=== PATIENT | female | born 1960 | race Two or more races ===

== ENCOUNTER 2020-07-25 17:05 | Inpatient (IN) | payer MEDICAID, OTHER ==
[~2020-07-25] VITALS: Ht 154.9 cm; Wt 74.2 kg
[2020-07-25] MEDS ORDERED: SODIUM CHLORIDE 0.9% 1,000 ML IVB ONE (18:00)
[2020-07-25 19:06] LABS: Basophils # (auto) 0 10 ^3/uL (0-0.2); Eosinophils # (auto) 0 10 ^3/uL (0-0.8); Monocytes # (auto) 0.2 10 ^3/uL (0-1.3)
[2020-07-25 19:08] LABS: Basophils % (auto) 0.5 % (0.0-2.0); Eosinophils % (auto) 0.6 % (0.0-7.0); Hematocrit 42.1 % (36.0-46.0); Hemoglobin 14.8 g/dL (12.2-16.2); Lymphocytes # (auto) 1.3 10 ^3/uL (0.4-5.4); Lymphocytes % (auto) 21.1 % (10.0-50.0); Mean Corpuscular Hemoglobin 33.8 pg (28.0-32.0); Mean Corpuscular Volume 96.4 fL (80.0-100.0); Monocytes % (auto) 3.5 % (0.0-12.0); Neutrophils # (auto) 4.4 10 ^3/uL (1.6-8.6); Neutrophils % (auto) 74.3 % (37.0-80.0); Platelet Count (auto) 212 10^3/uL (140-450); Red Blood Cells 4.37 10^6/uL (4.0-5.20); Red Cell Distribution Width 12.5 % (11.8-14.3)
[2020-07-25 19:19] LABS: Albumin 3.2 g/dL (3.4-5.0); Anion Gap 5 (5-15); Blood Urea Nitrogen 10 mg/dL (7-18); Calcium 9.3 mg/dL (8.5-10.1); Carbon Dioxide 30 mmol/L (21-32); Chloride 104 mmol/L (98-107); Glucose 204 mg/dL (74-106); Sodium 139 mmol/L (136-145)
[2020-07-25 19:24] LABS: Alanine Aminotransferase 16 U/L (13-56); Alkaline Phosphatase 116 U/L (45-117); Aspartate Aminotransferase 9 U/L (15-37); BUN/Creatinine Ratio 26.3; Bilirubin, Total 0.4 mg/dL (0.2-1.0); GFR African American 224 mL/min; GFR Non-African American 186 mL/min; Total Protein 7.1 g/dL (6.4-8.2)
[2020-07-25 20:37] LABS: INR 0.96 (0.9-1.15); Partial Thromboplastin Time 26.9 sec (23.0-31.2)
[2020-07-25 22:42] LABS: Urine Bacteria NONE SEEN /hpf (None Seen); Urine Blood Negative /uL (Negative); Urine Specific Gravity 1.012 (1.001-1.035); Urine WBC 2 /hpf (0 - 5)
[2020-07-25] MEDS ORDERED: ONDANSETRON HCL 4 MG/2 ML VIAL IV PRN (23:30)
[2020-07-25] MEDS ORDERED: DEXTROSE (50%) 50ML SYRG IV PRN (23:30)
[2020-07-25] MEDS ORDERED: NITROGLYCERIN 0.4 MG SL TAB SL PRN (23:30)
[2020-07-25] MEDS ORDERED: MORPHINE SULFATE 4 MG/ML SYR/VIAL IV PRN (23:30)
[2020-07-25] MEDS ORDERED: DOCUSATE SOD 100 MG CAP PO PRN (23:30)
[2020-07-25] MEDS ORDERED: hydrALAZINE HCL 20 MG/ML VL IV PRN (23:30)
[2020-07-25] MEDS ORDERED: ACETAMINOPHEN 325 MG TAB PO PRN (23:30)
[2020-07-25] MEDS ORDERED: MORPHINE SULF INJ 2 MG/ML SYRINGE 1ML IV PRN (23:30)
[2020-07-26 04:34] LABS: Basophils # (auto) 0 10 ^3/uL (0-0.2); Basophils % (auto) 0.5 % (0.0-2.0); Eosinophils # (auto) 0.1 10 ^3/uL (0-0.8); Eosinophils % (auto) 1.2 % (0.0-7.0); Hematocrit 40.1 % (36.0-46.0); Lymphocytes # (auto) 2.6 10 ^3/uL (0.4-5.4); Lymphocytes % (auto) 38.1 % (10.0-50.0); Mean Corpuscular Hemoglobin 33.3 pg (28.0-32.0); Mean Corpuscular Hgb Conc. 34.8 g/dL (32.0-36.0); Mean Corpuscular Volume 95.6 fL (80.0-100.0); Monocytes # (auto) 0.3 10 ^3/uL (0-1.3); Monocytes % (auto) 4.4 % (0.0-12.0); Neutrophils # (auto) 3.8 10 ^3/uL (1.6-8.6); Neutrophils % (auto) 55.8 % (37.0-80.0); Nucleated Red Blood Cells % 0.1 %; Platelet Count (auto) 219 10^3/uL (140-450); Red Cell Distribution Width 12.4 % (11.8-14.3); White Blood Cell 6.8 10^3/uL (4.4-10.8)
[2020-07-26 04:55] LABS: Chloride 106 mmol/L (98-107); Potassium 3.8 mmol/L (3.5-5.1); Sodium 140 mmol/L (136-145)
[2020-07-26 05:11] LABS: Alanine Aminotransferase 15 U/L (13-56); Albumin 2.8 g/dL (3.4-5.0); Alkaline Phosphatase 97 U/L (45-117); Anion Gap 7 (5-15); Aspartate Aminotransferase 11 U/L (15-37); BUN/Creatinine Ratio 27.9; Bilirubin, Total 0.3 mg/dL (0.2-1.0); Blood Urea Nitrogen 12 mg/dL (7-18); Calcium 8.9 mg/dL (8.5-10.1); Carbon Dioxide 27 mmol/L (21-32); Cholesterol 175 mg/dL (< 200); GFR African American 195 mL/min; GFR Non-African American 161 mL/min; Glucose 190 mg/dL (74-106); HDL Cholesterol 58 mg/dL (40-59); LDL Cholesterol 106 mg/dL (< 100); Total Protein 6.6 g/dL (6.4-8.2); Triglycerides 122 mg/dL (< 150)
[2020-07-26] MEDS: SODIUM CHLOR 0.9% PF (SALINE LOCK) 10ML VIAL/SYR IV SCH ×3 (06:03→21:25)
[2020-07-26] MEDS: ACCU-CHEK COMFORT CURVE STRIP VI SCH ×4 (07:22→21:26)
[2020-07-26] MEDS: InsuLIN REG 1unit/0.01ml Soln (100units/ml) SC SCH ×4 (07:23→21:27)
[2020-07-26 08:37] VITALS: BP 139/85
[2020-07-26] MEDS ORDERED: ASPirin 81 mg TAB PO SCH (10:00)
[2020-07-26] MEDS ORDERED: ZINC SULFATE 220mg CAP or TAB PO SCH (10:00)
[2020-07-26] MEDS ORDERED: ASCORBIC ACID 500 MG TAB PO SCH (10:00)
[2020-07-26] MEDS: FAMOTIDINE 20 MG TAB PO SCH ×2 (10:18→21:26)
[2020-07-26] MEDS: MULTIPLE VITAMIN TAB PO SCH (10:19)
[2020-07-26 12:51] VITALS: BP 143/74
[2020-07-26 16:22] VITALS: BP 142/84
[2020-07-26] MEDS ORDERED: LOSARTAN POTASSIUM 50 MG TAB PO ONE (17:45)
[2020-07-26] MEDS ORDERED: LORazepam 2MG/ML-1ML VIAL IV PRN (20:45)
[2020-07-26] MEDS: ATORVASTATIN 20 MG TAB PO SCH (21:25)
[2020-07-26] MEDS: PREGABALIN 25 MG CAP PO SCH (21:26)
[2020-07-26] MEDS: HYDROcodone-ACET 5/325MG TAB PO PRN (21:52)
[2020-07-26 22:00] VITALS: BP 132/70
[2020-07-26] MEDS ORDERED: ATORVASTATIN 20 MG TAB PO SCH (22:00)
[2020-07-27 05:00] VITALS: BP 133/74
[2020-07-27] MEDS: SODIUM CHLOR 0.9% PF (SALINE LOCK) 10ML VIAL/SYR IV SCH ×3 (06:33→22:04)
[2020-07-27] MEDS: ACCU-CHEK COMFORT CURVE STRIP VI SCH ×4 (06:33→22:07)
[2020-07-27] MEDS: InsuLIN REG 1unit/0.01ml Soln (100units/ml) SC SCH ×4 (06:34→22:16)
[2020-07-27 08:49] LABS: Ferritin 186.7 ng/mL (10-322)
[2020-07-27 09:11] VITALS: BP 121/68
[2020-07-27] MEDS ORDERED: METF-370 PO (10:09)
[2020-07-27] MEDS ORDERED: LISI-646 PO (10:11)
[2020-07-27] MEDS ORDERED: ATOR40TA52 PO (10:38)
[2020-07-27] MEDS ORDERED: LISI-648 PO (10:38)
[2020-07-27] MEDS ORDERED: GABA300C10 PO (10:38)
[2020-07-27] MEDS ORDERED: INSU1INJ19 SC (10:38)
[2020-07-27] MEDS ORDERED: DULO20CA PO (10:38)
[2020-07-27] MEDS ORDERED: INSU100I26 SC (10:39)
[2020-07-27] MEDS: PREGABALIN 25 MG CAP PO SCH ×2 (10:43→22:04)
[2020-07-27] MEDS: FAMOTIDINE 20 MG TAB PO SCH ×2 (10:44→22:03)
[2020-07-27] MEDS: ASPirin 81 mg TAB PO SCH (10:44)
[2020-07-27] MEDS: MULTIPLE VITAMIN TAB PO SCH (10:44)
[2020-07-27] MEDS: LOSARTAN POTASSIUM 50 MG TAB PO SCH (10:50)
[2020-07-27 13:04] VITALS: BP 133/75
[2020-07-27 16:28] VITALS: BP 125/65
[2020-07-27 22:00] VITALS: BP 117/70
[2020-07-27] MEDS: HYDROcodone-ACET 5/325MG TAB PO PRN (22:04)
[2020-07-27] MEDS: ATORVASTATIN 20 MG TAB PO SCH (22:04)
[2020-07-28 05:00] VITALS: BP 151/89
[2020-07-28] MEDS: ACCU-CHEK COMFORT CURVE STRIP VI SCH ×2 (06:17→11:30)
[2020-07-28] MEDS: SODIUM CHLOR 0.9% PF (SALINE LOCK) 10ML VIAL/SYR IV SCH ×2 (06:17→14:00)
[2020-07-28] MEDS: InsuLIN REG 1unit/0.01ml Soln (100units/ml) SC SCH ×2 (06:26→12:39)
[2020-07-28 09:00] VITALS: BP 121/68
[2020-07-28] MEDS: ASPirin 81 mg TAB PO SCH (09:34)
[2020-07-28] MEDS: PREGABALIN 25 MG CAP PO SCH (09:34)
[2020-07-28] MEDS: FAMOTIDINE 20 MG TAB PO SCH (09:35)
[2020-07-28] MEDS: MULTIPLE VITAMIN TAB PO SCH (09:35)
[2020-07-28] MEDS: LOSARTAN POTASSIUM 50 MG TAB PO SCH (09:36)
[2020-07-28 11:20] LABS: Folate (Folic Acid) 6.83 ng/mL (5.38-24)
[2020-07-28 13:00] VITALS: BP 121/65
[2020-07-28] MEDS ORDERED: CYANOCOBALAMIN (B-12) 1000 MCG/1 ML VIAL SUBCUT ONE (15:00)
[2020-07-28] MEDS ORDERED: ASPI1CHW15 PO (15:02)
[2020-07-28 16:30] VITALS: BP 126/62
== END 2020-07-28 17:00 | disposition home or self-care (01) | DRG 111 ==
LOC: ER 17:05 → TELE 23:32 → TELE-CENTR 07-26 06:35
PROVIDERS: ADMIT Nurse Practitioner Family; ATTEND Internal Medicine
DX: R42 Dizziness and giddiness (principal); E44.0 Moderate protein-calorie malnutrition; E11.40 Type 2 diabetes mellitus with diabetic neuropathy, unspecified; G25.81 Restless legs syndrome; Z20.822 Contact with and (suspected) exposure to COVID-19; E53.8 Deficiency of other specified B group vitamins; Z68.30 Body mass index [BMI] 30.0-30.9, adult; E78.5 Hyperlipidemia, unspecified; F17.200 Nicotine dependence, unspecified, uncomplicated; G47.00 Insomnia, unspecified; I10 Essential (primary) hypertension; I25.10 Atherosclerotic heart disease of native coronary artery without angina pectoris; Z79.4 Long term (current) use of insulin; G89.29 Other chronic pain; Z79.82 Long term (current) use of aspirin; Z79.899 Other long term (current) drug therapy; Z80.3 Family history of malignant neoplasm of breast; Z82.49 Family history of ischemic heart disease and other diseases of the circulatory system; Z83.3 Family history of diabetes mellitus; Z86.73 Personal history of transient ischemic attack (TIA), and cerebral infarction without residual deficits
CPT/HCPCS: 36415; 70450; 70551; 71045; 80053; 80061; 81001; 82607; 82728; 82746; 82962; 83036; 83540; 83550; 83735; 84155; 84165; 84443; 84484; 85025; 85610; 85730; 87426; 93005; 93306; 93886; 96360; 96361; G0378; J1815; J2405

== ENCOUNTER 2020-09-23 16:11 | Emergency (ER) | payer MEDICARE, MEDICAID ==
[~2020-09-23] VITALS: Ht 157.5 cm; Wt 77.1 kg
[~2020-09-23 16:11] MED LIST: ASPI1CHW15 PO; ATOR40TA52 PO; DULO20CA PO; INSU100I26 SC; INSU1INJ19 SC; LISI-716 PO; METF-370 PO
[2020-09-23 19:20] VITALS: BP 137/84
== END 2020-09-23 20:19 | disposition home or self-care (01) ==
LOC: ER 16:14
DX: H43.392 Other vitreous opacities, left eye (principal); E11.9 Type 2 diabetes mellitus without complications; I10 Essential (primary) hypertension; Z79.82 Long term (current) use of aspirin; Z79.899 Other long term (current) drug therapy

== ENCOUNTER 2021-04-21 15:07 | Emergency (ER) | payer MEDICARE, MEDICAID ==
[~2021-04-21] VITALS: Ht 154.9 cm; Wt 79.4 kg
[2021-04-21 15:32] VITALS: BP 165/84
[2021-04-21 20:44] LABS: Hematocrit 45.6 % (36.0-46.0); Hemoglobin 15.7 g/dL (12.2-16.2); Mean Corpuscular Hemoglobin 32.8 pg (28.0-32.0); Mean Corpuscular Hgb Conc. 34.4 g/dL (32.0-36.0); Mean Corpuscular Volume 95.4 fL (80.0-100.0); Red Blood Cells 4.78 10^6/uL (4.0-5.20); Red Cell Distribution Width 12.6 % (11.8-14.3); White Blood Cell 4.7 10^3/uL (4.4-10.8)
[2021-04-21 21:02] LABS: Albumin 3.4 g/dL (3.4-5.0); Potassium 4.8 mmol/L (3.5-5.1)
[2021-04-21 21:07] LABS: BUN/Creatinine Ratio 20.2; Bilirubin, Total 0.4 mg/dL (0.2-1.0); Total Protein 8.2 g/dL (6.4-8.2)
[2021-04-21 21:17] LABS: Band Neutrophils % (manual) 0; Basophils % (manual) 0 (0.0-2.0); Blast Cells 0; Eosinophils % (manual) 0 (0-7); Metamyelocytes % 0; Myelocytes % 0; Promyelocytes % 0; Reactive Lymphocytes 0
[2021-04-21 21:25] LABS: Lymphocytes % (manual) 37 (10.0-50.0); Monocytes % (manual) 3 (0-12)
== END 2021-04-22 03:33 | disposition home or self-care (01) ==
LOC: ER 15:07
DX: E11.65 Type 2 diabetes mellitus with hyperglycemia (principal); E11.40 Type 2 diabetes mellitus with diabetic neuropathy, unspecified; R20.0 Anesthesia of skin; I10 Essential (primary) hypertension; M19.90 Unspecified osteoarthritis, unspecified site; Z86.73 Personal history of transient ischemic attack (TIA), and cerebral infarction without residual deficits
CPT/HCPCS: 36415; 71045; 80053; 83880; 84484; 85007; 85027; 93005

== ENCOUNTER 2021-11-23 13:03 | Inpatient (IN) | payer MEDICAID, MEDICARE ==
[~2021-11-23] VITALS: Ht 157.5 cm; Wt 68.5 kg
[2021-11-23] MEDS ORDERED: SODIUM CHLORIDE 0.9% 1,000 ML IVB ONE (13:45)
[2021-11-23 14:12] LABS: Basophils # (auto) 0 10 ^3/uL (0-0.2); Basophils % (auto) 0.3 % (0.0-2.0); Eosinophils # (auto) 0 10 ^3/uL (0-0.8); Hematocrit 45.7 % (36.0-46.0); Hemoglobin 15.1 g/dL (12.2-16.2); Lymphocytes # (auto) 0.5 10 ^3/uL (0.4-5.4); Lymphocytes % (auto) 6.7 % (10.0-50.0); Mean Corpuscular Hemoglobin 31.9 pg (28.0-32.0); Mean Corpuscular Hgb Conc. 32.9 g/dL (32.0-36.0); Mean Corpuscular Volume 96.9 fL (80.0-100.0); Monocytes # (auto) 0.3 10 ^3/uL (0-1.3); Monocytes % (auto) 3.6 % (0.0-12.0); Neutrophils # (auto) 6.5 10 ^3/uL (1.6-8.6); Neutrophils % (auto) 89.4 % (37.0-80.0); Red Blood Cells 4.72 10^6/uL (4.0-5.20); Red Cell Distribution Width 12.9 % (11.8-14.3); White Blood Cell 7.3 10^3/uL (4.4-10.8)
[2021-11-23 14:48] LABS: Albumin 3.2 g/dL (3.4-5.0); Calcium 9.2 mg/dL (8.5-10.1); Magnesium 1.7 mg/dL (1.6-2.6)
[2021-11-23 14:52] LABS: BUN/Creatinine Ratio 20.9; Bilirubin, Total 0.6 mg/dL (0.2-1.0); Total Protein 6.7 g/dL (6.4-8.2)
[2021-11-23 15:04] LABS: Lactic Acid w/Reflex 2.4 mmol/L (0.4-2.0)
[2021-11-23] MEDS ORDERED: SODIUM CHLORIDE 0.9% 1,000 ML IV ONE (15:30)
[2021-11-23 19:03] LABS: Urine Bacteria MANY /hpf (None Seen); Urine Blood Negative /uL (Negative); Urine Mucus FEW (None Seen); Urine Specific Gravity 1.029 (1.001-1.035); Urine WBC 2 /hpf (0 - 5)
[2021-11-23] MEDS ORDERED: LOPERAMIDE HCL 2 MG CAP/TAB PO PRN (20:45)
[2021-11-23] MEDS ORDERED: DEXTROSE (50%) 50ML SYRG IV PRN (20:45)
[2021-11-23] MEDS ORDERED: cefTRIAXone 1GM/50ML D5W 50 ML IV ONE (20:45)
[2021-11-23] MEDS ORDERED: TEMAZEPAM 15 MG CAP PO PRN (20:45)
[2021-11-23] MEDS ORDERED: ACETAMINOPHEN 325 MG TAB PO PRN (20:45)
[2021-11-23] MEDS ORDERED: HYDROcodone-ACET 5/325MG TAB PO PRN (20:45)
[2021-11-23] MEDS ORDERED: ONDANSETRON HCL 4 MG/2 ML VIAL IV PRN (20:45)
[2021-11-23] MEDS: SODIUM CHLORIDE 0.9% 1,000 ML IV SCH (21:46)
[2021-11-23] MEDS ORDERED: LISINOPRIL 20 MG TAB PO SCH (22:00)
[2021-11-23] MEDS: ATORVASTATIN 20 MG TAB PO SCH (22:20)
[2021-11-23] MEDS: InsuLIN REG 1unit/0.01ml Soln (100units/ml) SC SCH (23:22)
[2021-11-24] MEDS: ACCU-CHEK COMFORT CURVE STRIP VI SCH ×4 (02:25→19:19)
[2021-11-24 05:00] VITALS: BP 106/58
[2021-11-24] MEDS: InsuLIN REG 1unit/0.01ml Soln (100units/ml) SC SCH ×3 (05:49→17:50)
[2021-11-24 06:32] LABS: Basophils # (auto) 0 10 ^3/uL (0-0.2); Basophils % (auto) 0.6 % (0.0-2.0); Eosinophils # (auto) 0 10 ^3/uL (0-0.8); Eosinophils % (auto) 0.2 % (0.0-7.0); Hemoglobin 13.6 g/dL (12.2-16.2); Lymphocytes # (auto) 1.5 10 ^3/uL (0.4-5.4); Lymphocytes % (auto) 31.7 % (10.0-50.0); Mean Corpuscular Hgb Conc. 33.2 g/dL (32.0-36.0); Mean Corpuscular Volume 96.6 fL (80.0-100.0); Monocytes # (auto) 0.3 10 ^3/uL (0-1.3); Monocytes % (auto) 6.1 % (0.0-12.0); Neutrophils # (auto) 2.8 10 ^3/uL (1.6-8.6); Neutrophils % (auto) 61.4 % (37.0-80.0); Nucleated Red Blood Cells % 0.1 %; Red Blood Cells 4.25 10^6/uL (4.0-5.20); White Blood Cell 4.6 10^3/uL (4.4-10.8)
[2021-11-24 06:47] LABS: Albumin 2.5 g/dL (3.4-5.0); Calcium 8.3 mg/dL (8.5-10.1); Potassium 3.5 mmol/L (3.5-5.1)
[2021-11-24 06:51] LABS: Bilirubin, Total 0.3 mg/dL (0.2-1.0); Total Protein 5.8 g/dL (6.4-8.2)
[2021-11-24] MEDS: cefTRIAXone 1GM/50ML D5W 50 ML IV SCH (08:20)
[2021-11-24] MEDS: PANTOPRAZOLE 40 MG TAB PO SCH (08:20)
[2021-11-24 09:00] VITALS: BP 119/63
[2021-11-24 13:00] VITALS: BP 143/73
[2021-11-24] MEDS: SODIUM CHLORIDE 0.9% 1,000 ML IV SCH ×2 (13:07→23:25)
[2021-11-24 17:00] VITALS: BP 138/75
[2021-11-24 22:00] VITALS: BP 173/94
[2021-11-24] MEDS ORDERED: INSULIN LANTUS (GLARGINE) 1 /0.01ml (100units/ml) SC SCH (22:00)
[2021-11-24] MEDS: ATORVASTATIN 20 MG TAB PO SCH (22:15)
[2021-11-24] MEDS ORDERED: LABETALOL HCL 5 MG/ML 4ML SYRINGE IV ONE (22:45)
[2021-11-25] MEDS: ACCU-CHEK COMFORT CURVE STRIP VI SCH ×2 (00:22→05:52)
[2021-11-25] MEDS: InsuLIN REG 1unit/0.01ml Soln (100units/ml) SC SCH ×2 (00:24→05:53)
[2021-11-25 05:00] VITALS: BP 150/64
[2021-11-25 09:00] VITALS: BP 118/61
[2021-11-25] MEDS ORDERED: CEFU500T43 PO (09:43)
[2021-11-25] MEDS: cefTRIAXone 1GM/50ML D5W 50 ML IV SCH (09:48)
[2021-11-25] MEDS: PANTOPRAZOLE 40 MG TAB PO SCH (09:48)
[2021-11-25] MEDS ORDERED: LISINOPRIL 10 MG TAB PO SCH (10:00)
[2021-11-25 11:11] VITALS: BP 118/61
== END 2021-11-25 11:53 | disposition home or self-care (01) | DRG 392 ==
LOC: ER 13:03 → OVERFLOW 20:41 → CENTRAL 23:20
PROVIDERS: ADMIT Nurse Practitioner; ATTEND Internal Medicine
DX: K52.9 Noninfective gastroenteritis and colitis, unspecified (principal); N39.0 Urinary tract infection, site not specified; E86.0 Dehydration; I10 Essential (primary) hypertension; M19.90 Unspecified osteoarthritis, unspecified site; E11.9 Type 2 diabetes mellitus without complications; Z86.73 Personal history of transient ischemic attack (TIA), and cerebral infarction without residual deficits; Z80.3 Family history of malignant neoplasm of breast; Z82.49 Family history of ischemic heart disease and other diseases of the circulatory system; Z83.3 Family history of diabetes mellitus; Z79.84 Long term (current) use of oral hypoglycemic drugs
CPT/HCPCS: 36415; 74176; 80053; 81001; 82150; 82607; 82962; 83036; 83605; 83690; 83735; 84443; 84484; 85025; 87086; 93005; 96361; 96365; G0378; J0696; J1815; J3490

== ENCOUNTER 2023-01-15 01:43 | Emergency (ER) | payer BC, MEDICARE ==
[~2023-01-15] VITALS: Ht 157.5 cm; Wt 78.4 kg
[~2023-01-15 01:43] MED LIST changes: +ASPI-736 PO; -ASPI1CHW15 PO; +CEFU500T43 PO; -LISI-716 PO; +LISI10TA34 PO
[2023-01-15] MEDS ORDERED: ACET-1080 PO ×3 (07:10→15:10)
[2023-01-15] MEDS ORDERED: CEPH500C PO ×3 (07:10→15:10)
[2023-01-15 07:29] VITALS: BP 147/96; PULSE 95; RESP 16; TEMP 98; O2SAT 98
== END 2023-01-15 07:18 | disposition home or self-care (01) ==
LOC: ER 01:43
DX: S80.922A Unspecified superficial injury of left lower leg, initial encounter (principal); E11.9 Type 2 diabetes mellitus without complications; I10 Essential (primary) hypertension; Z79.899 Other long term (current) drug therapy; Z79.84 Long term (current) use of oral hypoglycemic drugs; Z86.73 Personal history of transient ischemic attack (TIA), and cerebral infarction without residual deficits; Z98.890 Other specified postprocedural states; X58.XXXA Exposure to other specified factors, initial encounter; Y93.89 Activity, other specified; Y92.89 Other specified places as the place of occurrence of the external cause; Y99.8 Other external cause status

== ENCOUNTER 2023-04-04 20:15 | Inpatient (IN) | payer OTHER, MEDICAID ==
[~2023-04-04] VITALS: Ht 157.5 cm; Wt 81.4 kg
[~2023-04-04 20:15] MED LIST changes: +ACET-1080 PO; +CEPH500C PO
[2023-04-04] MEDS ORDERED: InsuLIN REG 1unit/0.01ml Soln (100units/ml) SC ONE (21:30)
[2023-04-04 21:39] LABS: Basophils # (auto) 0 10 ^3/uL (0-0.2); Basophils % (auto) 0.6 % (0.0-2.0); Eosinophils # (auto) 0.1 10 ^3/uL (0-0.8); Hematocrit 44.7 % (36.0-46.0); Hemoglobin 14.9 g/dL (12.2-16.2); Lymphocytes % (auto) 29.4 % (10.0-50.0); Mean Corpuscular Hemoglobin 32.2 pg (28.0-32.0); Mean Corpuscular Hgb Conc. 33.3 g/dL (32.0-36.0); Mean Corpuscular Volume 96.8 fL (80.0-100.0); Monocytes # (auto) 0.3 10 ^3/uL (0-1.3); Monocytes % (auto) 5.1 % (0.0-12.0); Neutrophils # (auto) 4.3 10 ^3/uL (1.6-8.6); Neutrophils % (auto) 63.9 % (37.0-80.0); Nucleated Red Blood Cells % 0.3 %; Red Blood Cells 4.61 10^6/uL (4.0-5.20); Red Cell Distribution Width 13.3 % (11.8-14.3); White Blood Cell 6.7 10^3/uL (4.4-10.8)
[2023-04-04 21:41] LABS: Alanine Aminotransferase 22 U/L (7-40); Albumin 4.3 g/dL (3.2-4.8); Alkaline Phosphatase 177 U/L (46-116); Anion Gap 7 (5-15); Aspartate Aminotransferase 13 U/L (13-40); BUN/Creatinine Ratio 20.3 (10.0-20.0); Bilirubin, Total 0.3 mg/dL (0.2-1.0); Blood Urea Nitrogen 26 mg/dL (9-23); Calcium 9.6 mg/dL (8.7-10.4); Carbon Dioxide 30 mmol/L (20-30); Chloride 96 mmol/L (98-107); Potassium 4.5 mmol/L (3.5-5.1); Sodium 133 mmol/L (136-145); Total Protein 7.2 g/dL (5.7-8.2)
[2023-04-04 21:55] LABS: Glucose 501 mg/dL (74-106)
[2023-04-04] MEDS ORDERED: VANCOMYCIN PER PHARMACY 0 MG IV SCH (23:45)
[2023-04-04] MEDS ORDERED: hydrALAZINE HCL 10 MG TAB PO PRN (23:45)
[2023-04-04] MEDS: INSULIN LANTUS (GLARGINE) 1 /0.01ml (100units/ml) SC SCH (23:45)
[2023-04-04] MEDS ORDERED: DEXTROSE (50%) 50ML SYRG IV PRN (23:45)
[2023-04-04] MEDS ORDERED: HYDROcodone-ACET 5/325MG TAB PO PRN (23:45)
[2023-04-05] MEDS ORDERED: VANCOMYCIN 1GM/200ML 250 ML IV SCH
[2023-04-05 00:30] LABS: Chloride 98 mmol/L (98-107); Potassium 4.8 mmol/L (3.5-5.1); Sodium 133 mmol/L (136-145)
[2023-04-05 00:31] LABS: Anion Gap 5 (5-15); Carbon Dioxide 30 mmol/L (20-30)
[2023-04-05 00:32] LABS: Calcium 9.8 mg/dL (8.7-10.4)
[2023-04-05 00:36] LABS: BUN/Creatinine Ratio 16.8 (10.0-20.0); Blood Urea Nitrogen 23 mg/dL (9-23)
[2023-04-05 00:42] LABS: Glucose 465 mg/dL (74-106); Lactic Acid w/Reflex 3.2 mmol/L (0.4-2.0)
[2023-04-05] MEDS: ENOXAPARIN SOD 40 MG/0.4 ML SYRINGE SC SCH ×2 (01:06→10:47)
[2023-04-05 02:15] VITALS: PULSE 91; RESP 16; O2SAT 99
[2023-04-05] MEDS: ACETAMINOPHEN 325 MG TAB PO PRN (05:57)
[2023-04-05] MEDS: ACCU-CHEK COMFORT CURVE STRIP VI SCH ×4 (06:42→22:00)
[2023-04-05] MEDS: InsuLIN REG 1unit/0.01ml Soln (100units/ml) SC SCH ×3 (06:56→20:06)
[2023-04-05] MEDS ORDERED: PATIENTS OWN MEDICATION (Aspirin (Aspirin Low Strength) 81 MG) PO SCH (10:00)
[2023-04-05] MEDS ORDERED: PATIENTS OWN MEDICATION (Duloxetine Hcl (Cymbalta) 30 MG) PO SCH (10:00)
[2023-04-05] MEDS: DULoxetine HCL 30 MG CAP PO SCH (10:46)
[2023-04-05] MEDS: ASPirin 81 mg TAB PO SCH (10:46)
[2023-04-05] MEDS: LISINOPRIL 10 MG TAB PO SCH (10:51)
[2023-04-05] MEDS: cefTRIAXone 1GM/50ML D5W 50 ML IV SCH (20:06)
[2023-04-05] MEDS ORDERED: ATORVASTATIN 20 MG TAB PO SCH (22:00)
[2023-04-05] MEDS: INSULIN LANTUS (GLARGINE) 1 /0.01ml (100units/ml) SC SCH (22:00)
[2023-04-05] MEDS ORDERED: InsuLIN REG 1unit/0.01ml Soln (100units/ml) SC SCH (22:00)
[2023-04-05 23:25] VITALS: BP_SYST 113; BP_SYST 128; BP_SYST 129; BP_DIAS 66; BP_DIAS 72; BP_DIAS 89; PULSE 96; RESP 16; TEMP 97.3; TEMP 97.6; O2SAT 99
[2023-04-06] MEDS ORDERED: VANCOMYCIN 1GM/200ML 200 ML IV SCH (01:00)
[2023-04-06] MEDS: DULoxetine HCL 30 MG CAP PO SCH ×2 (01:32→09:26)
[2023-04-06] MEDS: LISINOPRIL 10 MG TAB PO SCH ×2 (01:33→09:27)
[2023-04-06] MEDS: ACETAMINOPHEN 325 MG TAB PO PRN (01:33)
[2023-04-06] MEDS: ACCU-CHEK COMFORT CURVE STRIP VI SCH ×2 (05:43→12:34)
[2023-04-06 06:14] LABS: Chloride 100 mmol/L (98-107); Potassium 4.1 mmol/L (3.5-5.1); Sodium 134 mmol/L (136-145)
[2023-04-06 06:15] LABS: Anion Gap 8 (5-15); Calcium 9.6 mg/dL (8.5-10.1); Carbon Dioxide 26 mmol/L (20-30)
[2023-04-06 06:20] LABS: BUN/Creatinine Ratio 20.8 (10.0-20.0); Blood Urea Nitrogen 22 mg/dL (9-23); Glucose 284 mg/dL (74-106)
[2023-04-06] MEDS: InsuLIN REG 1unit/0.01ml Soln (100units/ml) SC SCH ×2 (06:40→12:36)
[2023-04-06 09:00] VITALS: BP 131/56; PULSE 112; RESP 18; TEMP 97.9; O2SAT 94
[2023-04-06] MEDS: ASPirin 81 mg TAB PO SCH (09:26)
[2023-04-06] MEDS: cefTRIAXone 1GM/50ML D5W 50 ML IV SCH (09:28)
[2023-04-06] MEDS: ENOXAPARIN SOD 40 MG/0.4 ML SYRINGE SC SCH (09:28)
[2023-04-06 13:00] VITALS: BP 135/67; PULSE 88; RESP 20; TEMP 98.4; O2SAT 97
[2023-04-06 15:31] VITALS: BP 135/67; PULSE 88; RESP 20; TEMP 98.4; O2SAT 97
== END 2023-04-06 17:08 | disposition home or self-care (01) | DRG 638 ==
LOC: ER 20:15 → OVERFLOW 23:43 → WEST WING 04-05 21:29
PROVIDERS: ADMIT Nurse Practitioner Family; ATTEND Nurse Practitioner Family
DX: E11.622 Type 2 diabetes mellitus with other skin ulcer (principal); L03.116 Cellulitis of left lower limb; L97.929 Non-pressure chronic ulcer of unspecified part of left lower leg with unspecified severity; N17.0 Acute kidney failure with tubular necrosis; E11.65 Type 2 diabetes mellitus with hyperglycemia; I10 Essential (primary) hypertension; E11.42 Type 2 diabetes mellitus with diabetic polyneuropathy; Z79.4 Long term (current) use of insulin; Z79.84 Long term (current) use of oral hypoglycemic drugs; Z86.73 Personal history of transient ischemic attack (TIA), and cerebral infarction without residual deficits; Z83.3 Family history of diabetes mellitus; Z82.49 Family history of ischemic heart disease and other diseases of the circulatory system; Z80.3 Family history of malignant neoplasm of breast
CPT/HCPCS: 36415; 73700; 80048; 80053; 82010; 82962; 83036; 83605; 85025; 87040; 93970; 96372; G0378; J1815

== ENCOUNTER 2023-06-20 01:48 | Emergency (ER) | payer OTHER ==
[~2023-06-20] VITALS: Ht 157.5 cm; Wt 75.0 kg
[~2023-06-20 01:48] MED LIST changes: -CEFU500T43 PO; -CEPH500C PO
[2023-06-20] MEDS: KETOROLAC TROMETH 30 MG/ML 1ML VIAL IM ONE (04:59)
[2023-06-20 06:40] LABS: Alanine Aminotransferase 13 U/L (7-40); Albumin 3.9 g/dL (3.2-4.8); Alkaline Phosphatase 117 U/L (46-116); Anion Gap 7 (5-15); Aspartate Aminotransferase 13 U/L (13-40); BUN/Creatinine Ratio 23.9 (10.0-20.0); Blood Urea Nitrogen 22 mg/dL (9-23); Calcium 9.5 mg/dL (8.5-10.1); Carbon Dioxide 25 mmol/L (20-30); Chloride 100 mmol/L (98-107); Glucose 273 mg/dL (74-106); Potassium 4.1 mmol/L (3.5-5.1); Sodium 132 mmol/L (136-145)
[2023-06-20 06:41] LABS: Bilirubin, Total 0.3 mg/dL (0.2-1.0); Total Protein 6.9 g/dL (5.7-8.2)
[2023-06-20 06:49] LABS: CRP High Sensitivity 3.79 mg/dL (<1.0)
[2023-06-20] MEDS: PIPERACILLIN-TAZOB 3.375GM 100 ML IV ONE (06:53)
[2023-06-20 07:18] LABS: Basophils # (auto) 0 10 ^3/uL (0-0.2); Basophils % (auto) 0.5 % (0.0-2.0); Eosinophils # (auto) 0.1 10 ^3/uL (0-0.8); Eosinophils % (auto) 1.1 % (0.0-7.0); Lymphocytes # (auto) 2.1 10 ^3/uL (0.4-5.4); Lymphocytes % (auto) 27.2 % (10.0-50.0); Mean Corpuscular Hemoglobin 32.2 pg (28.0-32.0); Mean Corpuscular Hgb Conc. 33.5 g/dL (32.0-36.0); Mean Corpuscular Volume 96.1 fL (80.0-100.0); Monocytes # (auto) 0.5 10 ^3/uL (0-1.3); Monocytes % (auto) 6.3 % (0.0-12.0); Neutrophils % (auto) 64.9 % (37.0-80.0); Nucleated Red Blood Cells % 0.1 %; Red Blood Cells 4.05 10^6/uL (4.0-5.20); Red Cell Distribution Width 13.2 % (11.8-14.3); White Blood Cell 7.7 10^3/uL (4.4-10.8)
[2023-06-20 07:42] VITALS: TEMP 98.1
[2023-06-20 07:51] VITALS: O2SAT 98
[2023-06-20 08:14] LABS: Erythrocyte Sedimentation Rate 59 mm/hr (0-20)
[2023-06-20 10:00] VITALS: BP 137/68; PULSE 84; RESP 18; O2SAT 97
[2023-06-20] MEDS: traMADol HCL 50 MG TAB PO ONE (10:25)
[2023-06-20] MEDS: VANCOMYCIN 1GM/200ML 200 ML IV ONE (10:36)
[2023-06-20] MEDS ORDERED: DOXY1CAP57 PO (11:15)
== END 2023-06-20 12:11 | disposition home or self-care (01) ==
LOC: ER 01:48
DX: E11.622 Type 2 diabetes mellitus with other skin ulcer (principal); L97.929 Non-pressure chronic ulcer of unspecified part of left lower leg with unspecified severity; I10 Essential (primary) hypertension; Z86.73 Personal history of transient ischemic attack (TIA), and cerebral infarction without residual deficits; Z79.4 Long term (current) use of insulin; Z79.82 Long term (current) use of aspirin; Z79.899 Other long term (current) drug therapy
CPT/HCPCS: 36415; 80053; 83605; 85652; 86141; 96365; 96366; 96367; 96372; 99285; J1885; J2543; J3370

== ENCOUNTER 2023-07-30 19:28 | Emergency (ER) | payer OTHER ==
[~2023-07-30] VITALS: Ht 152.4 cm; Wt 88.0 kg
[~2023-07-30 19:28] MED LIST changes: +DOXY1CAP57 PO
[2023-07-30 19:35] VITALS: BP 143/81; PULSE 95; RESP 16; O2SAT 98
[2023-07-30] MEDS ORDERED: IOHEXOL 350 MG/ML 100ML IJ ONE (20:11)
[2023-07-30 20:16] LABS: Basophils # (auto) 0 10 ^3/uL (0-0.2); Basophils % (auto) 0.5 % (0.0-2.0); Eosinophils # (auto) 0.1 10 ^3/uL (0-0.8); Eosinophils % (auto) 1.2 % (0.0-7.0); Hematocrit 40.9 % (36.0-46.0); Hemoglobin 13.8 g/dL (12.2-16.2); Lymphocytes # (auto) 2.3 10 ^3/uL (0.4-5.4); Lymphocytes % (auto) 31.2 % (10.0-50.0); Mean Corpuscular Hemoglobin 32.4 pg (28.0-32.0); Mean Corpuscular Hgb Conc. 33.8 g/dL (32.0-36.0); Monocytes # (auto) 0.5 10 ^3/uL (0-1.3); Monocytes % (auto) 6.1 % (0.0-12.0); Neutrophils # (auto) 4.6 10 ^3/uL (1.6-8.6); Nucleated Red Blood Cells % 0.1 %; Red Blood Cells 4.26 10^6/uL (4.0-5.20); Red Cell Distribution Width 13.1 % (11.8-14.3); White Blood Cell 7.5 10^3/uL (4.4-10.8)
[2023-07-30 20:31] LABS: INR 1.02 (0.9-1.15); Partial Thromboplastin Time 34.1 SEC (24.5-34.5); Prothrombin Time 10.7 sec (9.3-11.8)
[2023-07-30 20:32] LABS: Alanine Aminotransferase 18 U/L (7-40); Albumin 4.2 g/dL (3.2-4.8); Alkaline Phosphatase 132 U/L (46-116); Anion Gap 8 (5-15); Aspartate Aminotransferase 17 U/L (13-40); BUN/Creatinine Ratio 17.5 (10.0-20.0); Blood Alcohol < 3.0 mg/dL (<10); Blood Urea Nitrogen 14 mg/dL (9-23); Calcium 9.7 mg/dL (8.5-10.1); Carbon Dioxide 26 mmol/L (20-30); Chloride 103 mmol/L (98-107); Glucose 173 mg/dL (74-106); Sodium 137 mmol/L (136-145)
[2023-07-30 20:33] LABS: Bilirubin, Total 0.3 mg/dL (0.2-1.0); Total Protein 7.2 g/dL (5.7-8.2)
== END 2023-07-30 20:38 | disposition left against medical advice (07) ==
LOC: ER 19:28 → EDBD 19:28 → ER 19:55
DX: R41.82 Altered mental status, unspecified (principal); E11.9 Type 2 diabetes mellitus without complications; I10 Essential (primary) hypertension; Z86.73 Personal history of transient ischemic attack (TIA), and cerebral infarction without residual deficits; Z79.01 Long term (current) use of anticoagulants
CPT/HCPCS: 36415; 80053; 80320; 84484; 85025; 85379; 85610; 85730

== ENCOUNTER 2024-03-22 21:15 | Emergency (ER) | payer OTHER ==
[~2024-03-22] VITALS: Ht 162.6 cm; Wt 180.0 kg
[2024-03-22 23:06] LABS: Basophils # (auto) 0 10 ^3/uL (0-0.2); Basophils % (auto) 0.3 % (0.0-2.0); Eosinophils # (auto) 0 10 ^3/uL (0-0.8); Hematocrit 42.3 % (36.0-46.0); Hemoglobin 14.5 g/dL (12.2-16.2); Lymphocytes % (auto) 10.7 % (10.0-50.0); Mean Corpuscular Hemoglobin 34.1 pg (28.0-32.0); Mean Corpuscular Hgb Conc. 34.3 g/dL (32.0-36.0); Mean Corpuscular Volume 99.4 fL (80.0-100.0); Monocytes # (auto) 0.9 10 ^3/uL (0-1.3); Monocytes % (auto) 9.7 % (0.0-12.0); Neutrophils # (auto) 7.3 10 ^3/uL (1.6-8.6); Neutrophils % (auto) 79.3 % (37.0-80.0); Nucleated Red Blood Cells % 0.2 %; Platelet Count (auto) 140 10^3/uL (140-450); Red Blood Cells 4.26 10^6/uL (4.0-5.20); Red Cell Distribution Width 14.2 % (11.8-14.3); White Blood Cell 9.1 10^3/uL (4.4-10.8)
[2024-03-22 23:29] LABS: Alanine Aminotransferase 16 U/L (7-40); Albumin 4.1 g/dL (3.2-4.8); Alkaline Phosphatase 98 U/L (46-116); Anion Gap 10 (5-15); BUN/Creatinine Ratio 12.8 (10.0-20.0); Bilirubin, Total 0.4 mg/dL (0.2-1.0); Blood Urea Nitrogen 14 mg/dL (9-23); Calcium 9.6 mg/dL (8.7-10.4); Chloride 105 mmol/L (98-107); Potassium 4.5 mmol/L (3.5-5.1); Total Protein 7.1 g/dL (5.7-8.2)
[2024-03-22 23:32] LABS: Aspartate Aminotransferase 49 U/L (13-40); Carbon Dioxide 20 mmol/L (20-31); Glucose 192 mg/dL (74-106); Sodium 135 mmol/L (136-145)
[2024-03-23] VITALS (7 sets, daily range): BP systolic 110–122; BP diastolic 56–58; PULSE 74–94; RESP 15–20; TEMP 98.5–100.2; O2SAT 94–96
[2024-03-23] MEDS: ACETAMINOPHEN IV 1000 MG/100ML (10MG/ML) IV ONE (01:56)
--- NOTE | 2024-03-23 02:27 | ED.PDOC ---
History of Present Illness HPI Comments This patient is a 63-year-old morbidly obese female who arrives to the ED today for evaluation of generalized weakness and several falls events over the past two days. Patient denies any fever nausea or vomiting. Patient states she can not ambulate without feeling lightheaded and dizzy. Patient states that one of the falls resulted in low back pain concerns. Vital signs were stable on arrival. Chief Complaint: Dizziness Time Seen by MD: 22:16 Primary Care Provider: GILL Pennington Notes: Nurses Notes Allergies: Coded Allergies: NO KNOWN ALLERGIES (Unverified , 07/25/20) Home Meds Active Scripts Doxycycline Monohydrate (Doxycycline Monohydrate) 100 Mg Cap, 1 CAP PO BID for 10 Days, #20 CAP Prov:JULIANO BERNARD MD 06/20/23 Acetaminophen (Tylenol 8 Hour Arthritis) 650 Mg Tab, 650 MG PO TID, #30 TAB Prov:CATHY DALE 01/15/23 Aspirin (Aspirin Low Strength) 81 Mg Chw, 81 MG PO DAILY for 90 Days, #90 TAB Prov:JAMES GALLEGOS MD 07/28/20 Reported Medications Insulin Lispro (Admelog) 100 Unit/Ml Inj, 10 UNIT SC TIDWM, INJ 07/27/20 Lisinopril (Lisinopril) 10 Mg Tab, 10 MG PO BID for 30 Days, MG 07/27/20 Atorvastatin Calcium (ATORVASTATIN CALCIUM) 40 Mg Tab, 1 TAB PO HS, #30 TAB 5 Refills 07/27/20 Duloxetine Hcl (Cymbalta) 20 Mg Cap, 30 MG PO BID, CAP 07/27/20 Insulin Glargine (Basaglar Kwikpen) 100 Unit/Ml Inj, 25 UNIT SC HS, INJ 07/27/20 Metformin Hydrochloride (Metformin Hcl) 500 Mg Tab, 1 TAB PO BID, #60 TAB 3 Refills 07/27/20 Information Source: Patient, Friend Mode of Arrival: Ambulatory Severity: Moderate Timing: Days Duration: Since onset Prehospital treatment: None Past Medical History PAST MEDICAL HISTORY: Arthritis, CVA, DM, HTN Surgical History: HAT FINISHER History: No Pertinent HAT FINISHER History Family History Family History: Reviewed,noncontributory to illness, Family hx of DM, Family hx of Cancer, Family hx of HTN Social History Smoker: Non-Smoker Alcohol: Rarely Drugs: Denies Drug Use Lives In: Home Constitutional: reports: fatigue, weakness; denies: chills, diaphoresis, fever, malaise, sweats, others EENTM: denies: blurred vision, double vision, ear bleeding, ear discharge, ear drainage, ear pain, ear ringing, eye pain, eye redness, hearing loss, mouth pain, mouth swelling, nasal discharge, nose bleeding, nose congestion, nose pain, photophobia, tearing, throat pain, throat swelling, voice changes, others Respiratory: denies: cough, hemoptysis, orthopnea, SOB at rest, shortness of breath, SOB with excertion, stridor, wheezing, others Cardiovascular: denies: chest pain, dizzy spells, diaphoresis, Dyspnea on exertion, edema, irregular heart beat, left arm pain, lightheadedness, palpitations, PND, syncope, others Gastrointestinal: denies: abdomen distended, abdominal pain, blood streaked bowels, constipated, diarrhea, dysphagia, difficulty swallowing, hematemesis, melena, nausea, poor appetite, poor fluid intake, rectal bleeding, rectal pain, vomiting, others Genitourinary: denies: abnormal vagina bleeding, burning, dyspareunia, dysuria, flank pain, frequency, hematuria, incontinence, pain, , vagina d ischarge, urgency, others Neurological: reports: dizziness; denies: fainting, headache, left sided numbness, left sided weakness, numbness, paresthesia, pre-existing deficit, right sided numbness, right sided weakness, seizure, speech problems, tingling, tremors, weakness, others Musculoskeletal: reports: back pain; denies: gout, joint pain, joint swelling, muscle pain, muscle stiffness, neck pain, others Integumetry: denies: bruises, change in color, change in hair/nails, dryness, laceration, lesions, lumps, rash, wounds, others Allergic/Immunocompromised: denies: Difficulty Healing, Frequent Infections, Hives, Itching, others Hematologic/Lymphatic: denies: anemia, blood clots, easy bleeding, easy bruising, swollen glands, others Endocrine: denies: excessive hunger, excessive sweating, excessive thirst, excessive urination, flushing, intolerance to cold, intolerance to heat, unexplained weight gain, unexplained weight loss, others Psychiatric: denies: anxiety, bipolar disorder, depression, hopeless, panic disorder, schizophrenia, sleepless, suicidal, others Physical Exam General Appearance: Moderate Distress (Patient appears to be in moderate distress at time of evaluation.), Obese HEENT: Normal ENT Inspection, Pharynx Normal, TMs Normal Neck: Full Range of Motion, Non-Tender, Normal, Normal Inspection Respiratory: Chest Non-Tender, Lungs Clear, No Accessory Muscle Use, No Respiratory Distress, Normal Breath Sounds Cardiovascular: No Edema, No JVD, No Murmur, No Gallop, Normal Peripheral Pulses, Regular Rate/Rhythm Breast Exam: Deferred Gastrointestinal: No Organomegaly, Non Tender, No Pulsatile Mass, Normal Bowel Sounds, Soft Genitalia: Deferred Pelvic: Deferred Rectal: Deferred Extremities: No calf tenderness, Normal capillary refill, Normal inspection, Normal range of motion, Non-tender, No pedal edema Musculoskeletal : Location: Bilateral Extremity Location: Back (Bilateral lumbar tenderness to palpation diffusely. No definitive signs of trauma. No definitive edema or ecchymosis. Patient denies any saddle paresthesia. Distal neurovascular intact bilaterally) Apperance: Normal Neurologic: Alert, truck hop II-XII nml as Tested, No Motor Deficits, Normal Affect, Normal Mood, No Sensory Deficits Cerebellar Function: Normal Reflexes: Normal Skin: Dry, Normal Color, Warm Lymphatic: No Adenopathy Was a procedure done? Was a procedure done?: No Differential Dx Considerations may include: Lumbar vertebrae fracture, lumbar strain, electrolyte abnormality, acute coronary syndrome X-Ray, Labs, Meds, VS Vital Signs Date Time Temp Pulse Resp B/P (MAP) Pulse Ox O2 Delivery O2 Flow Rate FiO2 03/23/24 02:43 100.2 83 21 122/56 (78) 94 100.2 03/23/24 01:30 94 15 94 Room Air* 0 21 03/23/24 01:30 102.5 92 15 108/48 (68) 102.5 03/22/24 21:23 95 03/22/24 21:15 98.3 100 14 115/68 (84) 98 Lab Test 03/23/24 01:50 03/22/24 23:50 03/22/24 22:40 Range/Units Troponin I High Sensitivity 441 *H 439 *H 415 *H </=34 ng/L White Blood Count 9.1 4.4-10.8 10^3/uL Red Blood Count 4.26 4.0-5.20 10^6/uL Hemoglobin 14.5 12.2-16.2 g/dL Hematocrit 42.3 36.0-46.0 % Mean Corpuscular Volume 99.4 80.0-100.0 fL Mean Corpuscular Hemoglobin 34.1 H 28.0-32.0 pg Mean Corpuscular Hemoglobin Concent 34.3 32.0-36.0 g/dL Red Cell Distribution Width 14.2 11.8-14.3 % Platelet Count 140 140-450 10^3/uL Mean Platelet Volume 8.7 6.9-10.8 fL Neutrophils (%) (Auto) 79.3 37.0-80.0 % Lymphocytes (%) (Auto) 10.7 10.0-50.0 % Monocytes (%) (Auto) 9.7 0.0-12.0 % Eosinophils (%) (Auto) 0.0 0.0-7.0 % Basophils (%) (Auto) 0.3 0.0-2.0 % Neutrophils # (Auto) 7.3 1.6-8.6 10 ^3/uL Lymphocytes # (Auto) 1.0 0.4-5.4 10 ^3/uL Monocytes # (Auto) 0.9 0-1.3 10 ^3/uL Eosinophils # (Auto) 0 0-0.8 10 ^3/uL Basophils # (Auto) 0 0-0.2 10 ^3/uL Nucleated Red Blood Cells 0.2 % Sodium Level 135 L 136-145 mmol/L Potassium Level 4.5 3.5-5.1 mmol/L Chloride Level 105 98-107 mmol/L Carbon Dioxide Level 20 20-31 mmol/L Anion Gap 10 5-15 Blood Urea Nitrogen 14 9-23 mg/dL Creatinine 1.09 H 0.550-1.02 mg/dL Glomerular Filtration Rate Calc 58 >90 mL/min BUN/Creatinine Ratio 12.8 10.0-20.0 Serum Glucose 192 H 74-106 mg/dL Calcium Level 9.6 8.7-10.4 mg/dL Total Bilirubin 0.4 0.2-1.0 mg/dL Aspartate Amino Transferase (AST) 49 H 13-40 U/L Alanine Aminotransferase (ALT) 16 7-40 U/L Alkaline Phosphatase 98 46-116 U/L B-Type Natriuretic Peptide 207.89 0-100 pg/mL Total Protein 7.1 5.7-8.2 g/dL Albumin 4.1 3.2-4.8 g/dL Current Medications Medications (Trade) Dose Ordered Sig/Lars Route Start Time Stop Time Status Last Admin Acetaminophen (Ofirmev) 1,000 mg ONCE ONCE IV 03/23/24 02:00 03/23/24 02:01 DC 03/23/24 01:56 Ketorolac Tromethamine (Toradol Injection) 15 mg ONCE ONCE IV 03/23/24 03:00 03/23/24 03:01 DC 03/23/24 03:05 X-Ray, Labs, Meds, VS Comment All studies performed the ED were evaluated by me personally. Laboratories remarkable for a significant elevated troponin on all three readings. Patient's EKG reveals sinus rhythm with a rate of 95, nonspecific repolarization abnormalities on the inferior leads with a AR interval of 167 and a QT interval of 337. Imaging studies of the chest confirmed a right lower lobe pneumonia. Urine results were pending at time of this note. CT of the lumbar spine was pending at time of this note. Patient will be admitted for a cardiac evaluation to address her significant troponin concerns as well as antibiotics to address her right lower lobe pneumonia.. Discussed patient presentation as well as imaging and cardiac concerns with Dr. Davidson. He agreed to accept the patient as an admit. Time of 1ST Reevaluation: 02:26 Reevaluation 1ST: Improved Consultation: PCP, Cardiology Patient Education/Counseling: Diagnosis, Treatment Family Education/Counseling: Diagnosis, Treatment Departure 1 Departure Time of Disposition: 02:26 Impression: Primary Impression: Acute coronary syndrome Additional Impressions: Elevated troponin Back pain Pneumonia Disposition: 09 ADMITTED INPATIENT Condition: Stable Discharged With: Self Critical Care Note Critical Care Time?: No Stability Stability form required: No Heart Score Heart Score: Heart Score Response (Comments) Value History Slightly Suspicious 0 EKG Repolarization Disturb 1 Age 45-64 1 Risk Factors 1 or 2 risk factors 1 Troponin >3 x's Normal limit 2 Total 5 TIM DE LA PAZ [facility] Mar 23, 2024 02:27
[2024-03-23] MEDS: KETOROLAC TROMETH 30 MG/ML 1ML VIAL IV ONE (03:05)
--- NOTE | 2024-03-23 03:07 | DVH ---
Examination: CXRP CLINICAL INDICATION: Shortness of breath COMPARISON: None. TECHNIQUE: Frontal radiograph of the chest was obtained. FINDINGS: Patient is in rotation. Inhomogeneous radiopacities in right lower lung, suggestive of patchy consolidation. No pleural effusion on either side in current study. There is no pneumothorax. The cardiomediastinal silhouette is within normal limits. No acute osseous abnormality is seen. IMPRESSION: 1. Patchy consolidation in right lower lung. 2. Advised further evaluation with CT chest without contrast if clinically indicated. Electronically Signed 03/23/2024 03:06 Gabriela Payan
[2024-03-23] MEDS: AZITHROMYCIN 500MG/ 250ML 250 ML IV ONE (03:25)
[2024-03-23] MEDS ORDERED: ALBUTEROL SULF 2.5 MG/0.5ML(0.5%) NEB SOLN NEB PRN (03:30)
[2024-03-23] MEDS: SODIUM CHLORIDE 0.9% 1,000 ML IV ONE ×2 (03:46→05:27)
--- NOTE | 2024-03-23 03:59 | DVH ---
Examination: LS2CT CLINICAL INDICATION: LEG WEAKNESS COMPARISON: None. CONTRAST USED: None. TECHNIQUE: Axial sections through the lumbar spine with sagittal and coronal reformats were obtaine d without contrast. The CT scan was conducted according to ALARA (As Low as Reasonably Achievable) principles, with multi planar reconstructions obtained. FINDINGS: Alignment and General Structures: The alignment of the lumbosacral spine is maintained. Partial sacralization of the L5 vertebra is noted. Mild reduction in the height of the T11 vertebra, likely due to an axial compression fracture. Prominent Schmorl`s node at the superior endplate of the T11 vertebra. Vertebral Bodies and Posterior Elements: The vertebral bodies and posterior elements are unremarkable, except as noted above. No fracture or subluxation is identified. Soft Tissues: The pre- and paravertebral soft tissues are unremarkable. The sacroiliac joints are unremarkable to the extent visualized. Abdominal Organs (Extent Visualized): Mild hepatomegaly with fatty infiltration of the liver. Tiny calcified granulomas in both lobes of the liver. The gallbladder demonstrates subtle hyperdensity/tiny calculi without features of cholecystitis. Bilateral adrenal hyperplasia, more prominent on the left, with no discrete nodules. Mild hiatus hernia. Diffuse atherosclerotic calcifications of the abdominal aorta and visceral arteries. Disc Levels: T12-L1 through L2-L3: Disc height is within normal limits. No significant disc herniation, central canal, or neural foraminal narrowing. Facet joints and ligamentum flavum are within normal limits. L3-L4: Circumferential 3 mm right paracentral disc bulge with associated facet arthropathy and ligamentum fl avum hypertrophy. No significant neural foraminal narrowing or nerve impingement. L4-L5: Circumferential 3.5 mm paracentral disc bulge with associated facet arthropathy and ligamentum flavum hypertrophy. No significant neural foraminal narrowing or nerve impingement. L5-S1: Partial sacralization of the L5 vertebra. Mild bilateral facet arthropathy, more pronounced on the left. Moderate narrowing of the left neural foramina. IMPRESSION: 1. T11 Vertebra: Mild reduction in height due to probable axial compression fracture and a prominen t Schmorl`s node at the superior endplate. 2. L3-L4: Circumferential 3 mm right paracentral disc bulge with facet arthropathy and ligamentum f lavum hypertrophy, but no significant neural foraminal narrowing or nerve impingement. 3. L4-L5: Circumferential 3.5 mm paracentral disc bulge with facet arthropathy and ligamentum flavu m hypertrophy, without significant neural foraminal narrowing or nerve impingement. 4. L5-S1: Partial sacralization of L5 with mild bilateral facet arthropathy (left more than right) and moderate narrowing of the left neural foramina. 5. Liver: Mild hepatomegaly with fatty infiltration and tiny calcified granulomas in both lobes. 6. Gallbladder: Subtle hyperdensity/tiny calculi without features of cholecystitis. 7. Adrenal Glands: Bilateral adrenal hyperplasia, more prominent on the left, with no discrete nodu les. 8. Vessels: Diffuse atherosclerotic calcifications in the abdominal aorta and visceral arteries. 9. Hiatus Hernia: Mild hiatus hernia is present. Electronically Signed 03/23/2024 03:58 Gabriela Payan
--- NOTE | 2024-03-23 04:36 | DVH ---
Procedure: CT CHEST WITHOUT CONTRAST Reason for study/Clinical History: Rule out pnuemonia Comparison Study: Chest radiograph 03/23/2024. Exam Date: 03/23/2024 04:01 AM TECHNIQUE: Multidetector CT of the chest was performed from the lung apices to the upper abdomen with out the use of intravenous contract. Coronal and sagittal multiplanar reformats were performed. Radiation Dose Information: CT Dose: CTDI volume is 21.2 mGy. Dose-length product is 776.5 mGy*cm The dose indicators for CT are the volume Computed Tomography (CT) Dose Index (CTDIvol) and the Dose Length Product (DLP), and are measured in units of mGy and mGy-cm, respectively. These indicators are not patient dose, but values generated from the CT scanner acquisition factors. The report includes radiation exposure data for exposures received during this examination. FINDINGS: Motion degraded examination. Lower neck: Normal thyroid. Lungs: No focal consolidation, pleural effusion or pneumothorax. Pleura: No pleural effusion or significant pneumothorax. Central airways: Patent. Heart/Vascular Structures: Normal heart size. Coronary artery calcifications. No pericardial effusion . Lymph Nodes: No adenopathy Musculoskeletal: No acute osseous abnormality. Soft tissues: Normal. Upper abdomen: Limited portions of the upper abdomen are unremarkable. IMPRESSION: 1. No evidence of pneumonia. No acute abnormality. 2. Coronary artery calcifications. Radiation optimization: All CT scans at this facility use at least one of these dose optimization clover hniques: automated exposure control mA and/or kV adjustment per patient size (includes targeted exam s where dose is matched to clinical indication) or iterative reconstruction.
[2024-03-23 05:24] LABS: COVID19 ANTIGEN SOFIA FIA NEGATIVE (NEGATIVE)
[2024-03-23 05:34] LABS: Rapid Influenza B Negative (Negative)
[2024-03-23 05:35] LABS: Rapid Influenza A Positive (Negative)
[2024-03-23] MEDS: OSELTAMIVIR 75 MG CAP PO SCH (06:13)
[2024-03-23] MEDS: IPRATROPIUM BROM 0.5 MG/2.5ML INH SOL NEB SCH (07:00)
[2024-03-23] MEDS ORDERED: ALBU108A5 IN (07:01)
[2024-03-23] MEDS ORDERED: AZIT500T PO (07:01)
[2024-03-23] MEDS ORDERED: OSEL75CA5 PO (07:01)
[2024-03-23] MEDS: cefTRIAXone 1GM/50ML D5W 50 ML IV ONE (08:48)
--- NOTE | 2024-03-23 12:41 | ECG ---
[facility] Test Date: 2024-03-22 Test Time: 21:23:02 Pat Name: WADE PHELPS Department: er Room: Gender: F Insurance Verifier: noemi : [id number] Requested By: TIM DE LA PAZ Order Number: [id number] Reading MD: Andriy Gamble Measurements Intervals [place] Rate: 95 P: 63 VA: 167 QRS: 73 QRSD: 94 T: 224 QT: 337 QTc: 424 Interpretive Statements Sinus rhythm Nonspecific repol abnormality, inferior leads Electronically Signed On 03-29-2024 14:47:35 PST by Andriy Gamble Please click the below link to view image of tracing.
--- NOTE | 2024-03-23 21:12 | DVHINCON2 ---
Date of service: Mar 23, 2024 Referring Physician Johnathan Reason for Consultation Elevated troponin History of Present Illness This is a 63 year old female with a PMH of Chronic back pain, COPD, DM type 2, HTN who presents to the ED with complaints of dizziness, generalized weakness and substernal chest pain after spinal fusion surgery two weeks ago. Patient states she can not ambulate without feeling lightheaded and dizzy.Patient is noted to be having an increased amount of falls over a span of several days which one of her recent falls resulted in low back pain concerns. Patient was orthostatic positive on EMS arrival and received fluids prior to arrival to ED. WBC 9.1, Hgb 14.5, Plt 140, Na 135, K 4.5, Bun 14, Creatinine 1.09, Glucose 192. Trops 415 -> 439 -> 441. CT Lumbar spine showed T11 Vertebra: Mild reduction in height due to probable axial compression fracture and a prominent Schmorl`s node at the superior endplate. L3-L4: Circumferential 3 mm right paracentral disc bulge with facet arthropathy and ligamentum flavum hypertrophy, but no significant neural foraminal narrowing or nerve impingement. L4-L5: Circumferential 3.5 mm paracentral disc bulge with facet arthropathy and ligamentum flavum hypertrophy, without significant neural foraminal narrowing or nerve impingement. L5-S1: Partial sacralization of L5 with mild bilateral facet arthropathy (left more than right) and moderate narrowing of the left neural foramina. Liver: Mild hepatomegaly with fatty infiltration and tiny calcified granulomas in both lobes. Gallbladder: Subtle hyperdensity/tiny calculi without features of cholecystitis. Adrenal Glands: Bilateral adrenal hyperplasia, more prominent on the left, with no discrete nodules. Vessels: Diffuse atherosclerotic calcifications in the abdominal aorta and visceral arteries. Hiatus Hernia: Mild hiatus hernia is present. CT chest revealed coronary artery calcifications. Chest x-ray shows patchy consolidation in right lower lung. EKG showed sinus rhythm 95. Patient was admitted to the hospital. I am asked to consult on this patient. Family History: Alcoholism G8 FATHER FH myocardial infarction male first degree age known G8 FATHER FH: breast cancer G8 MOTHER FH: respiratory disease G8 MOTHER Allergies: Coded Allergies: NO KNOWN ALLERGIES (Unverified , 07/25/20) Home Meds Active Scripts Albuterol Sulfate (Albuterol Sulfate Hfa) 108 Mcg/Act Aer, 108 MCG IN Q4HPRN PRN, #1 AER Prov:KAYA GARCIA MD 03/23/24 Azithromycin (Zithromax) 500 Mg Tab, 1 TAB PO DAILY, #5 TAB Prov:KAYA GARCIA MD 03/23/24 Oseltamivir Phosphate (Tamiflu) 75 Mg Cap, 1 CAP PO BID, #10 CAP Prov:KAYA GRACIA MD 03/23/24 Doxycycline Monohydrate (Doxycycline Monohydrate) 100 Mg Cap, 1 CAP PO BID for 10 Days, #20 CAP Prov:JULIANO BERNARD MD 06/20/23 Acetaminophen (Tylenol 8 Hour Arthritis) 650 Mg Tab, 650 MG PO TID, #30 TAB Prov:CATHY DALE 01/15/23 Aspirin (Aspirin Low Strength) 81 Mg Chw, 81 MG PO DAILY for 90 Days, #90 TAB Prov:JAMES GALLEGOS MD 07/28/20 Reported Medications Insulin Lispro (Admelog) 100 Unit/Ml Inj, 10 UNIT SC TIDWM, INJ 07/27/20 Lisinopril (Lisinopril) 10 Mg Tab, 10 MG PO BID for 30 Days, MG 07/27/20 Atorvastatin Calcium (ATORVASTATIN CALCIUM) 40 Mg Tab, 1 TAB PO HS, #30 TAB 5 Refills 07/27/20 Duloxetine Hcl (Cymbalta) 20 Mg Cap, 30 MG PO BID, CAP 07/27/20 Insulin Glargine (Basaglar Kwikpen) 100 Unit/Ml Inj, 25 UNIT SC HS, INJ 07/27/20 Metformin Hydrochloride (Metformin Hcl) 500 Mg Tab, 1 TAB PO BID, #60 TAB 3 Refills 07/27/20 Current Medications Current Medications Medications (Trade) Dose Ordered Sig/Alrs Route PRN Reason Start Time Stop Time Status Last Admin Albuterol (Ventolin Medneb) 2.5 mg Q6HPRN PRN NEB SHORTNESS OF BREATH 03/23/24 03:30 03/23/24 10:50 DC Ipratropium [place] (Atrovent Medneb) 0.5 mg Q6HWA NEB 03/23/24 06:00 03/23/24 10:50 DC 03/23/24 07:00 Oseltamivir Phosphate (Tamiflu 75MG Capsule) 75 mg BID PO 03/23/24 06:00 03/23/24 10:50 DC 03/23/24 06:13 Review of Systems Constitutional: reports: fatigue, weakness; denies: chills, diaphoresis, fever, malaise, sweats, others EENTM: denies: blurred vision, double vision, ear bleeding, ear discharge, ear drainage, ear pain, ear ringing, eye pain, eye redness, hearing loss, mouth pain, mouth swelling, nasal discharge, nose bleeding, nose congestion, nose pain, photophobia, tearing, throat pain, throat swelling, voice changes, others Respiratory: denies: cough, hemoptysis, orthopnea, SOB at rest, shortness of breath, SOB with excertion, stridor, wheezing, others Cardiovascular: denies: chest pain, dizzy spells, diaphoresis, Dyspnea on exertion, edema, irregular heart beat, left arm pain, lightheadedness, palpitations, PND, syncope, others Gastrointestinal: denies: abdomen distended, abdominal pain, blood streaked bowels, constipated, diarrhea, dysphagia, difficulty swallowing, hematemesis, melena, nausea, poor appetite, poor fluid intake, rectal bleeding, rectal pain, vomiting, others Genitourinary: denies: abnormal vagina bleeding, burning, dyspareunia, dysuria, flank pain, frequency, hematuria, incontinence, pain, , vagina discharge, urgency, others Neurological: reports: dizziness; denies: fainting, headache, left sided numbness, left sided weakness, numbness, paresthesia, pre-existing deficit, right sided numbness, right sided weakness, seizure, speech problems, tingling, tremors, weakness, others Musculoskeletal: reports: back pain; denies: gout, joint pain, joint swelling, muscle pain, muscle stiffness, neck pain, others Integumetry: denies: bruises, change in color, change in hair/nails, dryness, laceration, lesions, lumps, rash, wounds, others Allergic/Immunocompromised: denies: Difficulty Healing, Frequent Infections, Hives, Itching, others Hematologic/Lymphatic: denies: anemia, blood clots, easy bleeding, easy bruising, swollen glands, others Endocrine: denies: excessive hunger, excessive sweating, excessive thirst, excessive urination, flushing, intolerance to cold, intolerance to heat, unexplained weight gain, unexplained weight loss, others Psychiatric: denies: anxiety, bipolar disorder, depression, hopeless, panic disorder, schizophrenia, sleepless, suicidal, others Vital Signs Vital Signs Date Time Temp Pulse Resp B/P (MAP) Pulse Ox O2 Delivery O2 Flow Rate FiO2 03/23/24 10:17 74 03/23/24 07:06 18 96 03/23/24 07:00 Room Air* 0 21 03/23/24 06:00 110/58 (75) 03/23/24 03:54 98.5 98.5 Physical Exam GENERAL: Awake, alert, oriented. Morbid obesity. LUNGS: Clear. CARDIOVASCULAR: Heart sounds are good. ABDOMEN: Soft. EXT: Extremities TTP. Labs/Diagnostic Data Labs Test 03/23/24 07:57 03/23/24 04:25 03/22/24 22:40 Range/Units Troponin I High Sensitivity 487 *H </=34 ng/L Influenza Type A Antigen Positive Negative Influenza Type B Antigen Negative Negative SARS-CoV-2 Antigen (Rapid) Negative NEGATIVE White Blood Count 9.1 4.4-10.8 10^3/uL Red Blood Count 4.26 4.0-5.20 10^6/uL Hemoglobin 14.5 12.2-16.2 g/dL Hematocrit 42.3 36.0-46.0 % Mean Corpuscular Volume 99.4 80.0-100.0 fL Mean Corpuscular Hemoglobin 34.1 H 28.0-32.0 pg Mean Corpuscular Hemoglobin Concent 34.3 32.0-36.0 g/dL Red Cell Distribution Width 14.2 11.8-14.3 % Platelet Count 140 140-450 10^3/uL Mean Platelet Volume 8.7 6.9-10.8 fL Neutrophils (%) (Auto) 79.3 37.0-80.0 % Lymphocytes (%) (Auto) 10.7 10.0-50.0 % Monocytes (%) (Auto) 9.7 0.0-12.0 % Eosinophils (%) (Auto) 0.0 0.0-7.0 % Basophils (%) (Auto) 0.3 0.0-2.0 % Neutrophils # (Auto) 7.3 1.6-8.6 10 ^3/uL Lymphocytes # (Auto) 1.0 0.4-5.4 10 ^3/uL Monocytes # (Auto) 0.9 0-1.3 10 ^3/uL Eosinophils # (Auto) 0 0-0.8 10 ^3/uL Basophils # (Auto) 0 0-0.2 10 ^3/uL Nucleated Red Blood Cells 0.2 % Sodium Level 135 L 136-145 mmol/L Potassium Level 4.5 3.5-5.1 mmol/L Chloride Level 105 98-107 mmol/L Carbon Dioxide Level 20 20-31 mmol/L Anion Gap 10 5-15 Blood Urea Nitrogen 14 9-23 mg/dL Creatinine 1.09 H 0.550-1.02 mg/dL Glomerular Filtration Rate Calc 58 >90 mL/min BUN/Creatinine Ratio 12.8 10.0-20.0 Serum Glucose 192 H 74-106 mg/dL Calcium Level 9.6 8.7-10.4 mg/dL Total Bilirubin 0.4 0.2-1.0 mg/dL Aspartate Amino Transferase (AST) 49 H 13-40 U/L Alanine Aminotransferase (ALT) 16 7-40 U/L Alkaline Phosphatase 98 46-116 U/L B-Type Natriuretic Peptide 207.89 0-100 pg/mL Total Protein 7.1 5.7-8.2 g/dL Albumin 4.1 3.2-4.8 g/dL Assessment Chest pain. Orthostatic dizziness. Low back pain. Plan/Recommendation I agree with your ongoing assessment and care of plan. IVFs. IV antibiotics as ordered. Additional plan as per the hospital course. A total of 45 minutes was spent reviewing the patient record, examining the patient, making a diagnostic and therapeutic plan, discussing this plan with medical personnel, following up on diagnostic studies and following the patient for clinical stability excluding any and all procedures. At least 50% of this time was spent in direct, [id number] contact. Plan discussed with: Patient ALYSIA MICHAEL MD Mar 23, 2024 11:29
--- NOTE | 2024-03-24 09:02 | DVHDS2 ---
New Physician D'charge PN Admitting Diagnosis Admitting Diagnosis weakness Discharge Diagnosis influenza A Operations or Procedures none Reason(s) For Hospitalization Surgery Hospital Course 63 F who comes to the ER for weakness and nausea over the last few days. Her CBC was nml and her chemistry panel was also normal however the patient tested + for influenza A. Given the findings of influenza A and her complaints of weakness i was asked to assume care of the patient. I reviewed the patients chart and lab data and she has a clear CXR with no consolidation or PNA. She was on room air saturating at 95% in no distress. Her troponin enzymes were elevated but the last troponin was downtrending and her EKG showed NSR and she never complained of any chest pain, Likely demand related in the setting of influenza. She was given 2L NS fluid bolus along with IV ABx, tamiflu and multiple nebulizer treatments. Her vitals remained stable and she will be discharged home with home 02 for comfort along with a course of tamiflu and albuterol inhaler, She was instructed to return to ER or call 911 should her symptoms worsen. Pt to be discharged home with outpt follow up via [facility] [place]. Treatment Plan Discharge Condition of Discharge Good Disposition Home Discharge Instructions Diet: Cardiac 2g Na,low cholest Activity: No Restrictions, As Tolerated Medications: see med sheet Follow Up Care Follow Up/Referral: pcp cardio Discharge Statement: "Patient was advised to return to the ER or call 911 if any headaches, dizziness, shortness of breath, chest pain, abdominal pain, bleeding, fevers, or worsening of medical condition. Patient was counseled about treatment plan, medications, possible side effects, patientverbalized understanding. All questions were answered to the best of my ability. This discharge took greater then 30 minutes in planning, reviewing documentation, counseling the patient, and discussing with other team members." KAYA GARCIA MD Mar 24, 2024 09:02
== END 2024-03-23 08:06 | disposition home or self-care (01) ==
LOC: ER 21:15 → EDBD 21:15 → ER 03-23 08:06
DX: I24.9 Acute ischemic heart disease, unspecified (principal); J18.9 Pneumonia, unspecified organism; M54.9 Dorsalgia, unspecified; R79.89 Other specified abnormal findings of blood chemistry; I10 Essential (primary) hypertension; E11.9 Type 2 diabetes mellitus without complications; M19.90 Unspecified osteoarthritis, unspecified site; E66.01 Morbid (severe) obesity due to excess calories; Z68.44 Body mass index [BMI] 60.0-69.9, adult; Z98.890 Other specified postprocedural states; Z79.82 Long term (current) use of aspirin; Z86.73 Personal history of transient ischemic attack (TIA), and cerebral infarction without residual deficits; Z79.84 Long term (current) use of oral hypoglycemic drugs; Z98.1 Arthrodesis status; Z79.899 Other long term (current) drug therapy; Z20.822 Contact with and (suspected) exposure to COVID-19
CPT/HCPCS: 36415; 71045; 71250; 72131; 80053; 83880; 84484; 85025; 87040; 87426; 87804; 93005; 96361; 96365; 96366; 96367; 96375; 99285; J0456; J0696; J1885; J7030; J0131